=== PATIENT | female | born 1985 | race Asian ===

== ENCOUNTER 2023-05-04 22:46 | Observation (INO) | payer BC ==
[~2023-05-04] VITALS: Ht 167.6 cm; Wt 54.4 kg
[2023-05-04 23:00] VITALS: BP 105/74; PULSE 88; RESP 18; TEMP 97.8
== END 2023-05-05 01:03 | disposition left against medical advice (07) ==
LOC: MLD 22:46
PROVIDERS: ADMIT Obstetrics & Gynecology; ATTEND Obstetrics & Gynecology
DX: O99.613 Diseases of the digestive system complicating pregnancy, third trimester (principal); K62.89 Other specified diseases of anus and rectum; Z3A.30 30 weeks gestation of pregnancy
CPT/HCPCS: G0378